=== PATIENT | male | born 1970 | race Caucasian/White ===

== ENCOUNTER 2018-09-10 13:32 | Emergency (ER) | payer MEDICARE, MEDICAID ==
[~2018-09-10] VITALS: Ht 162.6 cm; Wt 77.5 kg
[2018-09-10 13:35] VITALS: Ht 162.6 cm; Wt 77.5 kg
[2018-09-10] MEDS ORDERED: ONDANSETRON 4 MG INJ IV STA (14:09)
[2018-09-10] MEDS ORDERED: HYDROmorphONE 1 MG/ML SYG IV STA (14:09)
--- NOTE | 2018-09-10 14:12 | ERD ---
ER Documentation Chief Complaint Chief Complaint R side abd pain x 2 days; denies n/v; pt flushed HPI This is a 48-year-old male who is here for right upper quadrant pain he said the pain intermittently for the past 2 weeks but today pain is sharp and worse and constant. He says the pain is not worse with food or better with food. He has had some nonbilious nonbloody vomit today. No diarrhea had a bowel movement today. No chest pain or shortness of breath. He says the pain does not radiate to the back of her right lower quadrant ROS All systems reviewed and are negative except as per history of present illness. Medications Home Meds Reported Medications Amlodipine Besylate* (Amlodipine Besylate*) 10 Mg Tablet, 10 MG PO DAILY, #30 TAB 09/10/18 Hydrochlorothiazide* (Hydrochlorothiazide*) 50 Mg Tab, 50 MG PO DAILY, #30 TAB 09/10/18 Benazepril Hcl* (Benazepril Hcl*) 40 Mg Tablet, 40 MG PO DAILY, #30 TAB 09/10/18 Metoprolol Tartrate* (Lopressor*) 50 Mg Tab, 50 MG PO BID, #60 TAB 09/10/18 Allergies Allergies: Coded Allergies: No Known Allergy (Unverified , 01/07/14) PMhx/Soc Medical and Surgical Hx: pt denies Surgical Hx History of Surgery: No Anesthesia Reaction: No Hx Neurological Disorder: No Hx Respiratory Disorders: No Hx Cardiac Disorders: Yes (HTN) Hx Psychiatric Problems: No Hx Miscellaneous Medical Probl: Yes (ETOH) Hx Alcohol Use: No Hx Substance Use: No Hx Tobacco Use: No Smoking Status: Never smoker FmHx Family History: No coronary disease Physical Exam Vitals Vital Signs Date Temp Pulse Resp B/P (MAP) Pulse Ox O2 O2 Flow FiO2 Time Delivery Rate 09/10/18 83 20 139/87 100 Room Air 16:45 (104) 09/10/18 99.8 89 20 135/76 98 13:35 (95) Physical Exam Const: Well-developed, well-nourished Head: Atraumatic, normocephalic Eyes: Normal Conjunctiva, PERRLA, EOMI, normal sclera, no nystagmus ENT: Normal External Ears, Nose and Mouth, moist mucus membranes. Neck: Full range of motion. No meningismus, no lymphadenopathy. Resp: Clear to auscultation bilaterally, no wheezing, rhonchi, rales Cardio: Regular rate and rhythm, no murmurs, S1 S2 present Abd: Soft, moderate right upper quadrant tenderness, non distended. Normal bowel sounds, no guarding or rebound, no pulsitile abdominal masses or bruits Skin: No petechiae or rashes, no ecchymosis , no maculopapular rash Back: No midline or flank tenderness Ext: No cyanosis, or edema, FROM x 4, normal inspection, neurovascularly intact x 4 Neur: Awake and alert, STR 5/5 x 4, sensation intact x 4, no focal findings, cerebellum intact Psych: Normal Mood and Affect Result Diagram: 09/10/18 1420 09/10/18 1420 Results 24 hrs Laboratory Tests Test 09/10/18 14:20 White Blood Count 5.1 10^3/ul Red Blood Count 3.96 10^6/ul Hemoglobin 13.5 g/dl Hematocrit 36.2 % Mean Corpuscular Volume 91.4 fl Mean Corpuscular Hemoglobin 34.1 pg Mean Corpuscular Hemoglobin Concent 37.3 g/dl Red Cell Distribution Width 11.5 % Platelet Count 106 10^3/UL Mean Platelet Volume 9.5 fl Immature Granulocytes % 0.200 % Neutrophils % 70.6 % Lymphocytes % 10.7 % Monocytes % 18.1 % Eosinophils % 0.0 % Basophils % 0.4 % Nucleated Red Blood Cells % 0.0 /100WBC Immature Granulocytes # 0.010 10^3/ul Neutrophils # 3.6 10^3/ul Lymphocytes # 0.6 10^3/ul Monocytes # 0.9 10^3/ul Eosinophils # 0.0 10^3/ul Basophils # 0.0 10^3/ul Nucleated Red Blood Cells # 0.0 10^3/ul Sodium Level 126 mmol/L Potassium Level 3.5 mmol/L Chloride Level 83 mmol/L Carbon Dioxide Level 25 mmol/L Anion Gap 18 Blood Urea Nitrogen 24 mg/dl Creatinine 1.56 mg/dl Est Glomerular Filtrat Rate mL/min 48 mL/min Glucose Level 123 mg/dl Calcium Level 9.9 mg/dl Total Bilirubin 1.4 mg/dl Direct Bilirubin 0.00 mg/dl Indirect Bilirubin 1.4 mg/dl Aspartate Amino Transf (AST/SGOT) 92 IU/L Alanine Aminotransferase (ALT/SGPT) 24 IU/L Alkaline Phosphatase 90 IU/L Total Protein 8.7 g/dl Albumin 5.0 g/dl Globulin 3.70 g/dl Albumin/Globulin Ratio 1.35 Lipase 123 U/L Current Medications Medications Dose Sig/Fatimah Start Time Status Last (Trade) Ordered Route PRN Stop Time Admin Dose Reason Admin 1 mg ONCE STAT 09/10/18 DC 09/10/18 Hydromorphone IV 14:09 09/10/18 14:34 HCl 14:11 (Dilaudid) Ondansetron 4 mg ONCE STAT 09/10/18 DC 09/10/18 HCl (Zofran IV 14:09 09/10/18 14:34 Inj) 14:11 Sodium 500 ml @ Q1H STAT 09/10/18 DC 09/10/18 Chloride 500 mls/hr IV 15:15 09/10/18 16:11 16:14 Sodium 1,000 ml @ Q1H STAT 09/10/18 DC 09/10/18 Chloride 1,000 mls/hr IV 15:15 09/10/18 16:11 16:14 Procedures/MDM Ordering MD: ANTON MENDOZA DO Location: E/R Room/Bed: PROCEDURE: CT abdomen and pelvis without contrast. CLINICAL INDICATION: Abdominal pain TECHNIQUE: CT scan of the abdomen and pelvis without contrast was performed on the [employer] volumetric [address] scanner. The patient was scanned without intravenous contrast. 3-D coronal reformatted images were obtained from the axial source images. CTDI: 10.9 mGy DLP: 646 mGy-cm DICOM images are available. One or more of the following dose reduction techniques were utilized: 1.) Automated exposure control 2.) Adjustment of the mA +/- kV according to patient's size 3.) Use of iterative reconstruction technique. COMPARISON: None. FINDINGS: Limited evaluation of the lung bases are clear. No pleural effusion. There is advanced diffuse hepatic steatosis with hepatic enlargement. No focal liver lesions are seen although evaluation is limited without intravenous contrast. No biliary dilatation. The unenhanced spleen, bilateral adrenal glands, gallbladder, and pancreas are normal-appearing. The unenhanced bilateral kidneys are normal-appearing without hydronephrosis nor nephrolithiasis. The small and large bowel are thin-walled and nondilated without evidence for obstruction. Normal appendix. No free air, free fluid, mesenteric stranding, nor abdominal pelvic adenopathy by imaging size criteria. There is apparent smooth circumferential urinary bladder wall thickening which is nonspecific but may reflect cystitis; correlation with urinalysis is recommended. Mild scattered atherosclerotic calcifications of the abdominal aorta without gross aneurysm. Small left fat containing inguinal hernia. Mild diffuse osteopenia. IMPRESSION: 1. Mild smooth circumferential urinary bladder wall thickening is nonspecific but may reflect cystitis; correlation with urinalysis is recommended. 2. Otherwise, no acute intra-abdominal process. Normal appendix. No nephrolithiasis. No bowel obstruction. 3. Enlarged fatty liver. Physician Kia Date Time Electronically viewed and signed by Jose G Calixto Physician on 09/10/2018 16 :34 ML/ CC: ANTON MENDOZA DO [id number] Patient: ANDREA BOLAND : 1970 Age: 48 Sex: M MR #: [id number] DOS: 09/10/18 1409 Ordering MD: ANTON MENDOZA DO Location: E/R Room/Bed: PROCEDURE: US Abdomen Right Upper Quadrant. CLINICAL INDICATION: Abdominal pain TECHNIQUE: Multiple real-time longitudinal and transverse images were acquired of the patient's right upper quadrant abdomen utilizing a curved array transducer. COMPARISON: None FINDINGS: Liver: The liver is enlarged with the sagittal diameter of the right lobe measu ring 19.2 cm. The hepatic echotexture is diffusely echogenic. There is normal directional flow of the main portal vein. Gallbladder: Appears unremarkable and no stones are identified. There is no p ericholecystic fluid. Bile ducts: There is no significant intra or extrahepatic bile duct dilatation. The common bile duct measures 2.5 mm in cross diameter. No choledocholiths are seen within the visualized portions of the duct. Pancreas: The pancreas is obscured by bowel gas. Right kidney: Normal in echotexture and in size. The right kidney measures 10.8 cm in length. No mass, pathological calcification, or hydronephrosis is evident. Peritoneum: There is no free intraperitoneal fluid IMPRESSION: 1. Normal appearing gallbladder without evidence of cholelithiasis or bile duct dilatation. 2. The pancreas is obscured by bowel gas. 3. Enlarged diffusely echogenic liver most compatible with diffuse fatty infiltration. There is normal directional flow of the main portal vein. 4. Normal appearing right kidney. 5. No free intraperitoneal fluid is evident. Physician Mckenzie Date Time Electronically viewed and signed by Maddi Ramírez Physician on 09/10/2018 15:02 RH/ CC: ANTON MENDOZA DO [id number] The patient has no acute pathology on his CT scan he is likely having some biliary colic. The patient does now admit that he drinks 7-8 alcoholic drinks a night but has not drank in 4 nights now. He is not any sign of withdrawal at this time. Will discharge home with Bentyl for biliary colic. Departure Diagnosis: Primary Impression: Abdominal pain Abdominal location: right upper quadrant Qualified Codes: R10.11 - Right upper quadrant pain Condition: Stable ANTON MENDOZA DO Sep 10, 2018 14:12
[2018-09-10] MEDS ORDERED: METO-429 PO (15:01)
[2018-09-10] MEDS ORDERED: AMLO-147 PO (15:04)
[2018-09-10] MEDS ORDERED: HYDR50TA3 PO (15:04)
[2018-09-10] MEDS ORDERED: BENA40TA56 PO (15:04)
[2018-09-10] MEDS ORDERED: SOD CHLORIDE 0.9% 1,000 ML IV STA (15:15)
[2018-09-10] MEDS ORDERED: SOD CHLORIDE 0.9% 500 ML IV STA (15:15)
[2018-09-10 16:45] VITALS: BP 139/87; PULSE 83; RESP 20
[2018-09-10] MEDS ORDERED: DICY10CA40 PO (17:19)
== END 2018-09-10 17:47 | disposition home or self-care (01) ==
LOC: E/R 13:32
DX: R10.11 Right upper quadrant pain (principal); R11.10 Vomiting, unspecified; I10 Essential (primary) hypertension
CPT/HCPCS: 36415; 74176; 76705; 80053; 83690; 85025; 96374; 96375; 99285; J1170; J2405; J7030; J7040